=== PATIENT | female | born 1970 | race Caucasian/White ===

== ENCOUNTER 2016-09-14 12:20 | Emergency (ER) | payer OTHER ==
[~2016-09-14 12:20] MED LIST: BUSP10TA PO; GABA600T PO; HYDR-2768 PO; HYOS0.1251 PO; LORA0.5T PO; LOSA50TA PO; LURA20TA PO; OXYC5 PO; PREM1.25 PO; TOPA100T8 PO; TRAZ50TA4 PO
[2016-09-14 12:26] VITALS: BP 141/74; PULSE 87; RESP 20; TEMP 98.2; O2SAT 95
[2016-09-14] MEDS ORDERED: HYOS0.129 PO (12:35)
[2016-09-14] MEDS ORDERED: CYCL1TAB29 PO (12:35)
[2016-09-14] MEDS ORDERED: [UNRECOGNIZED DRUG - CODE] PO (12:35)
[2016-09-14] MEDS ORDERED: EQUE100C PO (12:35)
[2016-09-14] MEDS ORDERED: HYDR25TA5 PO (12:35)
[2016-09-14] MEDS ORDERED: LORA-373 PO (12:35)
[2016-09-14] MEDS ORDERED: ESTR1.25 PO (12:35)
[2016-09-14] MEDS ORDERED: LOSA50TA PO (12:35)
[2016-09-14] MEDS ORDERED: BUSP10TA PO (12:35)
[2016-09-14] MEDS ORDERED: VENL37.5 PO (12:35)
[2016-09-14] MEDS ORDERED: KETOROLAC TROMETHAMINE 30 MG/ML (IVP) VIAL IV PUSH ONE (12:45)
[2016-09-14] MEDS ORDERED: diphenhydrAMINE HCL 50 MG/ML VIAL IV PUSH ONE (12:45)
[2016-09-14] MEDS ORDERED: PROCHLORPERAZINE INJ 10 MG/2 ML VIAL IV PUSH ONE (12:45)
[2016-09-14] MEDS ORDERED: SODIUM CHLORIDE 0.9% FLUSH 10 ML FLUSH IVF PRN (12:45)
[2016-09-14] MEDS ORDERED: SODIUM CHLORID 0.9% 500 ML INJ 500 ML IV ONE (12:45)
--- NOTE | 2016-09-14 12:46 | PD ---
HPI Chief Complaint: Chest Pain Time Seen by Provider: 12:28 Travel History International Travel<30 days: No Contact w/Intl Traveler<30days: No Traveled to known affect area: No History of Present Illness HPI So 46 year-old woman who presents to the emergency department with multiple complaints. She states she woke up not really feeling well today. She started to develop some headache that she describes as frontal over the front of her head is pressure-like. She also started getting some pain in her neck and some chest pain. She also reports a "hard time thinking". She really states she was at her therapist that she had trouble getting her words out and thought clear. She started getting a headache yesterday. She is a history of migraines but states this headache feels different. Typically her migraines are unilateral behind her right eye. She otherwise has been feeling generally well. Review systems positive for some nausea. No recent illness or injury. No other complaints. History Past Medical History Narrative Medical Hypertension hyperlipidemia Chronic pain Bipolar disorder Menopausal: No : 4 Para: 1 Social History Alcohol Use: No Tobacco Use: No Allergies-Medications (Allergen,Severity, Reaction): Coded Allergies: Imitrex (Verified Allergy, Unknown, N/V, 09/14/16) Lisinopril (Verified Allergy, Unknown, ITCHY, SWOLLEN THROAT, 09/14/16) Mobic (Verified Adverse Reaction, Severe, Swelling, 09/14/16) Reported Meds & Prescriptions Reported Meds & Active Scripts Active Reported Effexor (Venlafaxine HCl) 37.5 Mg Tab 37.5 Mg PO DAILY Losartan (Losartan Potassium) 50 Mg Tab 50 Mg PO DAILY Topiramate (Topiramate (Bulk)) 1 Pow Pow 50 Mg PO BID Premarin (Estrogens Conjugated) 1.25 Mg Tab 1.25 Mg PO DAILY Hydrochlorothiazide 25 Mg Tab 25 Mg PO DAILY Equetro ER 12 HR (Carbamazepine ER 12 HR) 100 Mg Cap 100 Mg PO Q12HR Buspirone (Buspirone HCl) 10 Mg Tab 10 Mg PO TID PRN Flexeril (Cyclobenzaprine HCl) 10 Mg Tab 10 Mg PO DAILY Lorazepam 0.5 Mg Tab 0.5 Mg PO BID Hyoscyamine Sulfate 0.125 Mg Tab 1 Tab PO Q4H PRN Review of Systems Except as stated in HPI: all other systems reviewed are Neg Physical Exam Narrative GENERAL: Well-appearing 46 year-old woman, no acute distress. SKIN: Focused skin assessment warm/dry. HEAD: Atraumatic. Normocephalic. EYES: Pupils equal and round. No scleral icterus. No injection or drainage. ENT: No nasal bleeding or discharge. Mucous membranes pink and moist. NECK: Trachea midline. No JVD. CARDIOVASCULAR: Regular rate and rhythm. No murmur appreciated. RESPIRATORY: No accessory muscle use. Clear to auscultation. Breath sounds equal bilaterally. GASTROINTESTINAL: Abdomen soft, non-tender, nondistended. Hepatic and splenic margins not palpable. MUSCULOSKELETAL: No obvious deformities. No clubbing. No cyanosis. No edema. NEUROLOGICAL: Awake and alert. No obvious cranial nerve deficits. Motor grossly within normal limits. Normal speech. PSYCHIATRIC: Appropriate mood and affect; insight and judgment normal. Data Data Last Documented VS Vital Signs Date Time Temp Pulse Resp B/P Pulse Ox O2 Delivery O2 Flow Rate FiO2 09/14/16 13:24 71 18 117/73 95 09/14/16 12:26 98.2 Orders Electrocardiogram (09/14/16 12:38) Complete Blood Count With Diff (09/14/16 12:38) Comprehensive Metabolic Panel (09/14/16 12:38) Troponin I (09/14/16 12:38) Chest, Single Ap (09/14/16 12:38) Ecg Monitoring (09/14/16 12:38) Iv Access Insert/Monitor (09/14/16 12:38) Oximetry (09/14/16 12:38) Oxygen Administration (09/14/16 12:38) Sodium Chloride 0.9% Flush (Ns Flush) (09/14/16 12:45) Sodium Chlorid 0.9% 500 Ml Inj (Ns 500 M (09/14/16 12:45) Prochlorperazine Inj (Compazine Inj) (09/14/16 12:45) Diphenhydramine Inj (Benadryl Inj) (09/14/16 12:45) Ketorolac Inj (Toradol Inj) (09/14/16 12:45) Labs Laboratory Tests Test 09/14/16 12:45 White Blood Count 8.2 TH/MM3 Red Blood Count 4.14 MIL/MM3 Hemoglobin 12.9 GM/DL Hematocrit 38.5 % Mean Corpuscular Volume 93.0 FL Mean Corpuscular Hemoglobin 31.1 PG Mean Corpuscular Hemoglobin 33.5 % Concent Red Cell Distribution Width 13.8 % Platelet Count 257 TH/MM3 Mean Platelet Volume 7.4 FL Neutrophils (%) (Auto) 57.8 % Lymphocytes (%) (Auto) 29.3 % Monocytes (%) (Auto) 8.4 % Eosinophils (%) (Auto) 4.0 % Basophils (%) (Auto) 0.5 % Neutrophils # (Auto) 4.8 TH/MM3 Lymphocytes # (Auto) 2.4 TH/MM3 Monocytes # (Auto) 0.7 TH/MM3 Eosinophils # (Auto) 0.3 TH/MM3 Basophils # (Auto) 0.0 TH/MM3 CBC Comment DIFF FINAL Differential Comment Sodium Level 139 MEQ/L Potassium Level 3.8 MEQ/L Chloride Level 102 MEQ/L Carbon Dioxide Level 27.4 MEQ/L Anion Gap 10 MEQ/L Blood Urea Nitrogen 20 MG/DL Creatinine 0.89 MG/DL Estimat Glomerular Filtration 68 ML/MIN Rate Random Glucose 93 MG/DL Calcium Level 8.5 MG/DL Total Bilirubin 0.3 MG/DL Aspartate Amino Transf 27 U/L (AST/SGOT) Alanine Aminotransferase 51 U/L (ALT/SGPT) Alkaline Phosphatase 108 U/L Troponin I LESS THAN 0.02 NG/ML Total Protein 7.3 GM/DL Albumin 3.7 GM/DL [facility] Medical Decision Making Medical Screen Exam Complete: Yes Emergency Medical Condition: Yes Interpretation(s) My review of EKG: Normal sinus rhythm rate of 77, normal axis, normal intervals , poor R-wave progression, no acute ischemia. LABS: CBC is unremarkable. CMP is unremarkable. Troponin negative. Chest x-ray negative. Differential Diagnosis Migraine, tension headache, stress, somatization, URI, other Narrative Course Medical decision making INITIAL: Well-appearing 38 year-old woman with multiple complaints seem to center around a bad headache, some chest pain, some difficulty keeping her thoughts clear. She is on multiple medications. She is her chronic pain. Symptoms chest pain with this as well. EKG is unremarkable. We'll give her migraine cocktail, check some basic labs, chest x-ray. Likely discharge. Diagnosis Primary Impression: Chest pain Additional Impression: Headache Additional Instructions: Follow-up with your primary doctor in 3-5 days every not feeling completely well. Return to the emergency department for any worsening chest pain, trouble breathing, or any other new or worsening symptoms. Med/Other Pt SpecificInfo: No Change to Meds Disposition: 01 DISCHARGE HOME Condition: Stable Tomi Mills MD Sep 14, 2016 12:46
[2016-09-14 12:53] VITALS: O2SAT 95
[2016-09-14 13:01] LABS: AUTOMATED NEUTROPHIL # 4.8 TH/MM3 (1.8-7.7); BASOPHIL % 0.5 % (0.0-2.0); EOSINOPHIL # 0.3 TH/MM3 (0-0.4); HEMATOCRIT 38.5 % (35.0-46.0); HEMO FLAGS DIFF FINAL; LYMPH % 29.3 % (9.0-44.0); LYMPHOCYTE # 2.4 TH/MM3 (1.0-4.8); MEAN CORPUSCULAR HEMOGLOBIN 31.1 PG (27.0-34.0); MEAN CORPUSCULAR HGB CONC 33.5 % (32.0-36.0); MONO % 8.4 % (0.0-8.0); NEUT % 57.8 % (16.0-70.0); PLATELET COUNT 257 TH/MM3 (150-450); RED BLOOD COUNT 4.14 MIL/MM3 (4.00-5.30); RED CELL DISTRIBUTION WIDTH 13.8 % (11.6-17.2); WHITE BLOOD COUNT 8.2 TH/MM3 (4.0-11.0)
[2016-09-14 13:10] LABS: CHLORIDE 102 MEQ/L (98-107); POTASSIUM 3.8 MEQ/L (3.5-5.1); SODIUM (NA) 139 MEQ/L (136-145)
[2016-09-14 13:14] LABS: ANION GAP 10 MEQ/L (5-15); BICARBONATE 27.4 MEQ/L (21.0-32.0); BLOOD UREA NITROGEN 20 MG/DL (7-18)
[2016-09-14 13:17] LABS: ALT (GPT) 51 U/L (10-53); AST (GOT) 27 U/L (15-37); GLOMERULAR FILTRATION RATE 68 ML/MIN (>89)
[2016-09-14 13:19] LABS: TOTAL BILIRUBIN ADULT 0.3 MG/DL (0.2-1.0)
--- NOTE | 2016-09-14 13:19 | RADHPO ---
EXAM DATE/TIME: 09/14/2016 12:47 [facility] COMPARISON: CHEST SINGLE AP, July 27, 2015, 19:39. INDICATIONS : Chest pain and headache. MEDICAL HISTORY : Hypertension. Arthritis. Ovarian cyst. Fibromyalgia. Mitral valve prolapse. SURGICAL HISTORY : Appendectomy. Tubal ligation. ENCOUNTER: Initial ACUITY: 1 day PAIN SCORE: 8/10 LOCATION: Bilateral chest FINDINGS: A single view of the chest demonstrates the lungs to be symmetrically aerated without evidence of mas s, infiltrate or effusion. The cardiomediastinal contours are unremarkable. Osseous structures are intact. CONCLUSION: No acute cardiopulmonary process. Jose Manuel Neal MD on September 14, 2016 at 13:17 Board Certified Radiologist. This report was verified electronically.
[2016-09-14 13:20] LABS: ALKALINE PHOSPHATASE 108 U/L (45-117)
[2016-09-14 13:24] VITALS: BP 117/73; PULSE 71; RESP 18; O2SAT 95
--- NOTE | 2016-09-15 14:02 | EKG ---
Date Performed: 09/14/2016 Time Performed: 12:20:50 PTAGE: 46 years EKG: Sinus rhythm . Poor R wave progression - probable normal variant Low QRS voltages in precordial leads Borderline E CG Compared to prior tracing no significant change PREVIOUS TRACING : 07/28/2015 01.27 DOCTOR: aSmuel Cabrera Interpretating Date/Time 09/15/2016 13:59:45
== END 2016-09-14 13:44 | disposition home or self-care (01) ==
LOC: PHED 12:20
DX: R07.9 Chest pain, unspecified (principal); R51 Headache; M54.2 Cervicalgia; R11.0 Nausea; R94.31 Abnormal electrocardiogram [ECG] [EKG]; I10 Essential (primary) hypertension; E78.5 Hyperlipidemia, unspecified; G89.29 Other chronic pain; Z86.59 Personal history of other mental and behavioral disorders
CPT/HCPCS: 71010; 80053; 84484; 85025; 93005; 96361; 96374; 96375; 99285; J0780; J1200; J1885; J7040

== ENCOUNTER 2016-11-15 13:08 | Emergency (ER) | payer OTHER ==
[~2016-11-15] VITALS: Ht 162.6 cm; Wt 92.0 kg
[~2016-11-15 13:08] MED LIST changes: +CYCL1TAB29 PO; +EQUE100C PO; +ESTR1.25 PO; -GABA600T PO; -HYDR-2768 PO; +HYDR25TA5 PO; -HYOS0.1251 PO; +HYOS0.129 PO; +LORA-373 PO; -LORA0.5T PO; -LURA20TA PO; -OXYC5 PO; -PREM1.25 PO; -TOPA100T8 PO; -TRAZ50TA4 PO; +VENL37.5 PO; +[UNRECOGNIZED DRUG - CODE] PO
[2016-11-15 13:10] VITALS: BP 132/77; PULSE 94; RESP 18; TEMP 97.7; O2SAT 98
--- NOTE | 2016-11-15 13:15 | PD ---
Physical Exam Date Seen by Provider: Nov 15, 2016 Time Seen by Provider: 13:11 Data Data Last Documented VS Vital Signs Date Time Temp Pulse Resp B/P Pulse Ox O2 Delivery O2 Flow Rate FiO2 11/15/16 13:10 97.7 94 18 132/77 98 MDM Supervised Visit with TG: No Narrative Course 46 YO F with complaint of disturbing thoughts. +SI --HI No active plan. States : I have a lot of medications." Hx bipolar, PTSD, hallucinations. Endorses compliance with medications. Recent change to Carbamazepine 1 month ago[address] Follow[address] by Dr. Faria. Vitals reviewed. Patient seen in triage, awaiting bed placement. April Meyer Nov 15, 2016 13:15
[2016-11-15 15:10] LABS: AUTOMATED NEUTROPHIL # 4.5 TH/MM3 (1.8-7.7); BASOPHIL # 0.1 TH/MM3 (0-0.2); BASOPHIL % 0.7 % (0.0-2.0); EOSINOPHIL # 0.3 TH/MM3 (0-0.4); EOSINOPHIL % 3.8 % (0.0-4.0); HEMATOCRIT 41.6 % (35.0-46.0); HEMO FLAGS DIFF FINAL; LYMPH % 36.5 % (9.0-44.0); LYMPHOCYTE # 3.2 TH/MM3 (1.0-4.8); MEAN CELL VOLUME 93.6 FL (80.0-100.0); MEAN CORPUSCULAR HGB CONC 34.2 % (32.0-36.0); MONO % 6.7 % (0.0-8.0); NEUT % 52.3 % (16.0-70.0); PLATELET COUNT 259 TH/MM3 (150-450); RED BLOOD COUNT 4.44 MIL/MM3 (4.00-5.30); RED CELL DISTRIBUTION WIDTH 14.2 % (11.6-17.2); WHITE BLOOD COUNT 8.6 TH/MM3 (4.0-11.0)
[2016-11-15 15:15] LABS: AMPHETAMINE, URINE NEG (NEG); BARBITURATES, URINE NEG (NEG); COCAINE, URINE NEG (NEG)
[2016-11-15 15:27] LABS: BICARBONATE 29.6 MEQ/L (21.0-32.0); POTASSIUM 3.6 MEQ/L (3.5-5.1)
--- NOTE | 2016-11-15 15:28 | PD ---
HPI Chief Complaint: Psychiatric Symptoms Time Seen by Provider: 15:28 Travel History International Travel<30 days: No Contact w/Intl Traveler<30days: No Traveled to known affect area: No History of Present Illness HPI 46-year-old female with a history of hypertension, depression, anxiety, bipolar disorder, migraines presents to the emergency department for evaluation of suicidal ideations. The patient states that for the last month she has had increasingly more frequent suicidal ideations. States that she has a history of depression and has had recent life stressors with financial difficulties at home which is aggravated her depression. States that her psychiatrist changed her medications about 4 months ago and thinks that this also has worsened her depression. She states that she has had suicidal thoughts in the past and many years ago attempted to kill herself by "walking into the ocean to drown myself. " States that she has not done anything recently an attempt to harm herself. Denies any ingestion of substances in an attempt to harm herself. States that she has had thoughts of killing herself by overdosing on her medication at home or taking one of her husbands guns and shooting herself. States that she became scared to be alone today which is why she came for evaluation. She states she has a mild headache but otherwise denies any complaints. Denies any chest pain, shortness breath, abdominal pain, nausea, vomiting, dizziness. Denies any alcohol or drug use. She is status post hysterectomy. PFSH Past Medical History Arthritis: Yes Autoimmune Disease: No Bipolar Disorder: Yes Anxiety: Yes Depression: Yes Heart Rhythm Problems: Yes (OCCASIONAL FEELING OF PALPITATIONS.) Cancer: No Cardiovascular Problems: Yes (MITRAL VALVE PROLAPSE FOUND AT 10 YEARS OLD) High Cholesterol: Yes Chest Pain: Yes (CHEST PRESSURE WITH SHARP FAST PAIN) Congestive Heart Failure: No Cerebrovascular Accident: No Diabetes: No Diminished Hearing: No Endocrine: No Fibromyalgia: Yes Gastrointestinal Disorders: Yes GERD: No Genitourinary: No Headaches: Yes Hiatal Hernia: No Hypertension: Yes Immune Disorder: No Musculoskeletal: Yes Neurologic: Yes Psychiatric: Yes Reproductive: Yes (OVARIAN CYST AND FIBROIDS) Respiratory: No Migraines: Yes Seizures: No Thyroid Disease: No Ulcer: No Tetanus Vaccination: > 5 Years Influenza Vaccination: No ?: Not Menopausal: No : 4 Para: 1 Miscarriage: 1 : 3 Tubal Ligation: Yes Past Surgical History Abdominal Surgery: Yes (APPENDIX) Appendectomy: Yes Gynecologic Surgery: Yes (TUBAL) Hysterectomy: Yes Oral Surgery: Yes (WISDOM TOOTH REMOVAL, TONSILS) Tonsillectomy: Yes Other Surgery: Yes (NASAL SURGERY) Social History Alcohol Use: Yes Tobacco Use: Yes Substance Use: No Allergies-Medications (Allergen,Severity, Reaction): Coded Allergies: Imitrex (Verified Allergy, Unknown, N/V, 11/15/16) Lisinopril (Verified Allergy, Unknown, ITCHY, SWOLLEN THROAT, 11/15/16) Mobic (Verified Adverse Reaction, Severe, Swelling, 11/15/16) Reported Meds & Prescriptions Reported Meds & Active Scripts Active Reported Hyoscyamine (Hyoscyamine Sulfate) 0.125 Mg Tab 0.125 Mg PO Q4HR Effexor (Venlafaxine HCl) 37.5 Mg Tab 37.5 Mg PO DAILY Losartan (Losartan Potassium) 50 Mg Tab 50 Mg PO DAILY Topiramate (Topiramate (Bulk)) 1 Pow Pow 50 Mg PO BID Premarin (Estrogens Conjugated) 1.25 Mg Tab 1.25 Mg PO DAILY Hydrochlorothiazide 25 Mg Tab 25 Mg PO DAILY Equetro ER 12 HR (Carbamazepine ER 12 HR) 100 Mg Cap 100 Mg PO Q12HR Buspirone (Buspirone HCl) 10 Mg Tab 10 Mg PO TID PRN Flexeril (Cyclobenzaprine HCl) 10 Mg Tab 10 Mg PO DAILY Lorazepam 0.5 Mg Tab 0.5 Mg PO BID Review of Systems Except as stated in HPI: all other systems reviewed are Neg Physical Exam Narrative GENERAL: Well-nourished and well-developed pleasant female patient in no acute distress, tearful and upset. SKIN: Warm and dry. HEAD: Normocephalic and atraumatic. EYES: No injection, drainage, or hyphema noted. PERRLA. EOMI. ENT: No nasal drainage noted. Oropharynx is clear. NECK: Supple and the trachea is midline. CARDIOVASCULAR: Regular rate and rhythm. RESPIRATORY: Breath sounds are equal bilaterally with no accessory muscle use, wheezing, rhonchi, or crackles. GASTROINTESTINAL: Abdomen is soft, non-tender, and nondistended. MUSCULOSKELETAL: No obvious deformities, swelling, cyanosis, or ecchymosis is present throughout the upper and lower extremities. Patient has full range of motion without any signs of neurovascular compromise. NEUROLOGICAL: Awake, alert, and oriented. Normal speech and gait. Cranial nerves are grossly intact. Data Data Last Documented VS Vital Signs Date Time Temp Pulse Resp B/P Pulse Ox O2 Delivery O2 Flow Rate FiO2 11/15/16 13:10 97.7 94 18 132/77 98 Orders Complete Blood Count With Diff (11/15/16 14:31) Basic Metabolic Panel (Bmp) (11/15/16 14:31) Psych Screen (11/15/16 14:31) Drug Screen, Random Urine (11/15/16 14:31) Alcohol (Ethanol) (11/15/16 14:31) Acetaminophen (Tylenol) (11/15/16 15:30) Labs Laboratory Tests Test 11/15/16 14:40 White Blood Count 8.6 TH/MM3 Red Blood Count 4.44 MIL/MM3 Hemoglobin 14.2 GM/DL Hematocrit 41.6 % Mean Corpuscular Volume 93.6 FL Mean Corpuscular Hemoglobin 32.0 PG Mean Corpuscular Hemoglobin 34.2 % Concent Red Cell Distribution Width 14.2 % Platelet Count 259 TH/MM3 Mean Platelet Volume 7.5 FL Neutrophils (%) (Auto) 52.3 % Lymphocytes (%) (Auto) 36.5 % Monocytes (%) (Auto) 6.7 % Eosinophils (%) (Auto) 3.8 % Basophils (%) (Auto) 0.7 % Neutrophils # (Auto) 4.5 TH/MM3 Lymphocytes # (Auto) 3.2 TH/MM3 Monocytes # (Auto) 0.6 TH/MM3 Eosinophils # (Auto) 0.3 TH/MM3 Basophils # (Auto) 0.1 TH/MM3 CBC Comment DIFF FINAL Differential Comment Sodium Level 138 MEQ/L Potassium Level 3.6 MEQ/L Chloride Level 102 MEQ/L Carbon Dioxide Level 29.6 MEQ/L Anion Gap 6 MEQ/L Blood Urea Nitrogen 11 MG/DL Creatinine 0.96 MG/DL Estimat Glomerular Filtration 62 ML/MIN Rate Random Glucose 83 MG/DL Calcium Level 9.3 MG/DL Urine Opiates Screen NEG Urine Barbiturates Screen NEG Urine Amphetamines Screen NEG Urine Benzodiazepines Screen NEG Urine Cocaine Screen NEG Urine Cannabinoids Screen NEG Ethyl Alcohol Level 4 MG/DL MDM Medical Decision Making Medical Screen Exam Complete: Yes Emergency Medical Condition: Yes Differential Diagnosis Differential: Depression versus adjustment reaction versus anxiety versus PTSD versus psychosis NOS versus mood disorder NOS versus substance induced mood disorder versus ODD versus adjustment reaction versus schizophrenia versus bipolar disorder versus schizoaffective versus electrolyte abnormality versus dementia versus malingering. Narrative Course Patient presents voluntarily for psychiatric evaluation. Physical examination and vital signs are essentially unremarkable. Patient complains of a mild headache and is given Tylenol. Psych screen has been ordered. The patient is agreeable to stay under voluntary basis but should she try to leave before psych eval she should be placed under a [place] Act. I did discuss this with her and she understands. The laboratory results are unremarkable. The patient is medically cleared for psychiatric evaluation and disposition. Diagnosis Primary Impression: Depression with suicidal ideation Bell Coppola Nov 15, 2016 15:28
[2016-11-15] MEDS ORDERED: ACETAMINOPHEN 500 MG CPLT PO ONE (15:30)
[2016-11-15] MEDS ORDERED: HYOS0.128 PO (15:41)
[2016-11-15] MEDS ORDERED: GABA600T PO (15:56)
[2016-11-15] MEDS ORDERED: TOPA50TA7 PO (15:56)
[2016-11-15] MEDS ORDERED: LURA40 PO (15:56)
[2016-11-15] MEDS ORDERED: VENL75CA44 PO (15:56)
[2016-11-15] MEDS ORDERED: TRAZ100T6 PO (15:56)
[2016-11-15] MEDS ORDERED: HYDR-3533 PO (15:56)
[2016-11-15 16:24] VITALS: BP 129/68
[2016-11-15 18:21] VITALS: BP 129/68; PULSE 89; RESP 18; O2SAT 97
--- NOTE | 2016-11-15 18:41 | PD ---
History of Present Illness Chief Complaint: Psychiatric Symptoms Time Seen by Provider: 18:00 Travel History International Travel<30 Days: No Contact w/Intl Traveler<30days: No Known affected area: No Legal Status Legal Status: Voluntary History of Present Illness: History of Present Illness HPI 46-year-old female with a history of depression, anxiety, bipolar disorder who presents to the emergency department for evaluation of suicidal ideations. The patient states that for the last month she has had increasingly more frequent suicidal ideations with no attempts.Her psychiatrist changed her medications and added Equetro about 4 months ago. She states that she has had suicidal thoughts in the past and many years ago attempted to kill herself by "walking into the ocean to drown myself." States that she has had thoughts of killing herself by overdosing on her medication at home or taking one of her husbands guns and shooting herself. States that she became scared to be alone today which is why she came for evaluation. Recent life stressors include financial difficulties . Patient is alert and oriented female who appears stated age. She is engaging with fluid speech. No keely. No hallucinations. She appears sad and depressed. Denies suicidal ideation at this time. No homicidal ideation. At his time she is requesting discharge and tells me she has had time to come up with a safety plan. She will be in contact with her therapist and will continue with her medications. She will return home and if any changes in how she feels she agrees to return to ED. The medication changes occurred 4 months ago. The patient has been seen by her outpatient provider who has recommended that she increase the Equetro to 300 mg po q day. She has not increased the medication because she was afraid that she would run out of the samples she had at home. I have advised her to contact her outpatient provider as well as to increase the medication as it has been prescribed. . PFSH Past Medical History Arthritis: Yes Autoimmune Disease: No Bipolar Disorder: Yes Anxiety: Yes Depression: Yes Heart Rhythm Problems: Yes (OCCASIONAL FEELING OF PALPITATIONS.) Cancer: No Cardiovascular Problems: Yes (MITRAL VALVE PROLAPSE FOUND AT 10 YEARS OLD) High Cholesterol: Yes Chest Pain: Yes (CHEST PRESSURE WITH SHARP FAST PAIN) Congestive Heart Failure: No Cerebrovascular Accident: No Diabetes: No Diminished Hearing: No Endocrine: No Fibromyalgia: Yes Gastrointestinal Disorders: Yes GERD: No Genitourinary: No Headaches: Yes Hiatal Hernia: No Hypertension: Yes Immune Disorder: No Musculoskeletal: Yes Neurologic: Yes Psychiatric: Yes Reproductive: Yes (OVARIAN CYST AND FIBROIDS) Respiratory: No Migraines: Yes Seizures: No Thyroid Disease: No Ulcer: No Tetanus Vaccination: > 5 Years Influenza Vaccination: No ?: Not Menopausal: No : 4 Para: 1 Miscarriage: 1 : 3 Tubal Ligation: Yes Past Surgical History Abdominal Surgery: Yes (APPENDIX) Appendectomy: Yes Gynecologic Surgery: Yes (TUBAL) Hysterectomy: Yes Oral Surgery: Yes (WISDOM TOOTH REMOVAL, TONSILS) Tonsillectomy: Yes Other Surgery: Yes (NASAL SURGERY) Psychiatric History Psychiatric History Hx Psychiatric Treatment: Currently sees Dr Faria for psychiatry, Dr Medley for counceling. History of Inpatient Treatment: No Guns or firearms in home: Yes (In 's posession) Social History female . Lives with her . Hx Alcohol Use: Yes Hx Tobacco Use: Yes Hx Substance Use: No (Pt denies) Hx of Substance Use Treatment: No Family Psychiatric History Negative Allergies-Medications (Allergen,Severity, Reaction): Coded Allergies: Imitrex (Verified Allergy, Unknown, N/V, 11/15/16) Lisinopril (Verified Allergy, Unknown, ITCHY, SWOLLEN THROAT, 11/15/16) Mobic (Verified Adverse Reaction, Severe, Swelling, 11/15/16) Reported Meds & Prescriptions Reported Meds & Active Scripts Active Reported Trazodone (Trazodone HCl) 100 Mg Tablet 150 Mg PO HS PRN Gabapentin 600 Mg Tab 600 Mg PO TID Lortab (Hydrocodone-Acetaminophen) 5-325 Mg Tab 1 Tab PO BID Venlafaxine ER 24 HR (Venlafaxine HCl) 75 Mg Cap 75 Mg PO DAILY Topamax (Topiramate) 50 Mg Tab 50 Mg PO BID Hyoscyamine (Hyoscyamine Sulfate) 0.125 Mg Tab 0.125 Mg PO Q4HR PRN Losartan (Losartan Potassium) 50 Mg Tab 50 Mg PO DAILY Premarin (Estrogens Conjugated) 1.25 Mg Tab 1.25 Mg PO DAILY Hydrochlorothiazide 25 Mg Tab 25 Mg PO DAILY Equetro ER 12 HR (Carbamazepine ER 12 HR) 100 Mg Cap 100 Mg PO Q12HR Flexeril (Cyclobenzaprine HCl) 10 Mg Tab 10 Mg PO HS Lorazepam 0.5 Mg Tab 0.5 Mg PO BID PRN Review of Systems Constitutional: COMPLAINS OF: Change in appetite (decreased) Endocrine: DENIES: Abnorml menstrual pattern, Heat/cold intolerance, Polydipsia , Polyuria, Polyphagia Eyes: DENIES: Blurred vision, Diplopia, Eye inflammation, Eye pain, Vision loss , Photosensitivity, Double Vision Ears, nose, mouth, throat: DENIES: Tinnitus, Hearing loss, Vertigo, Nasal discharge, Oral lesions, Throat pain, Hoarseness, Ear Pain, Running Nose, Epistaxis, Sinus Pain, Toothache, Odynophagia Respiratory: DENIES: Apneas, Cough, Snoring, Wheezing, Hemoptysis, Sputum production, Shortness of breath Cardiovascular: DENIES: Chest pain, Palpitations, Syncope, Dyspnea on Exertion , PND, Lower Extremity Edema, Orthopnea, Claudication Genitourinary: DENIES: Abnormal vaginal bleeding, Dysmenorrhea, Dyspareunia, Sexual dysfunction, Urinary frequency, Urinary incontinence, Urgency, Hematuria , Dysuria, Nocturia, Vaginal discharge Hematologic/lymphatic: DENIES: Bruising, Lymphadenopathy Immunologic/allergic: DENIES: Eczema, Urticaria Neurologic: DENIES: Abnormal gait, Headache, Localized weakness, Paresthesias, Seizures, Speech Problems, Tremor, Poor Balance Psychiatric: COMPLAINS OF: Depression Exam Alert: Yes [place]: Person (ox4) Mood: Depressed Affect: Appropriate Speech: Clear, Logical Eye Contact: Normal Memory Intact: Comment (No impairmetn) Hallucinations: Other (negative) Delusions: No Suicidal: Ideation (marge at present) Homicidal: Ideation (denies any) Insight/Judgement Fair. Not impaired. MDM Medical Decision Making Medical Record Reviewed: Yes Assessment/Plan 46 year old female under a voluntary status after she felt afraid of staying home by herself. She is currently in tx with outpatient provider but has been feeling increasingly depressed since changes were made to her medications 4 months ago. At this time the patient denies suicidal ideation. She has formulated a safety plan and contracts to return to ED if she once again feels unsafe. Orders Complete Blood Count With Diff (11/15/16 14:31) Basic Metabolic Panel (Bmp) (11/15/16 14:31) Psych Screen (11/15/16 14:31) Drug Screen, Random Urine (11/15/16 14:31) Alcohol (Ethanol) (11/15/16 14:31) Acetaminophen (Tylenol) (11/15/16 15:30) Results Vital Signs Date Time Temp Pulse Resp B/P Pulse Ox O2 Delivery O2 Flow Rate FiO2 11/15/16 18:21 89 18 129/68 97 Room Air 11/15/16 16:24 89 18 129/68 97 11/15/16 13:10 97.7 94 18 132/77 98 Laboratory Tests Test 11/15/16 14:40 White Blood Count 8.6 Red Blood Count 4.44 Hemoglobin 14.2 Hematocrit 41.6 Mean Corpuscular Volume 93.6 Mean Corpuscular Hemoglobin 32.0 Mean Corpuscular Hemoglobin 34.2 Concent Red Cell Distribution Width 14.2 Platelet Count 259 Mean Platelet Volume 7.5 Neutrophils (%) (Auto) 52.3 Lymphocytes (%) (Auto) 36.5 Monocytes (%) (Auto) 6.7 Eosinophils (%) (Auto) 3.8 Basophils (%) (Auto) 0.7 Neutrophils # (Auto) 4.5 Lymphocytes # (Auto) 3.2 Monocytes # (Auto) 0.6 Eosinophils # (Auto) 0.3 Basophils # (Auto) 0.1 CBC Comment DIFF FINAL Differential Comment Sodium Level 138 Potassium Level 3.6 Chloride Level 102 Carbon Dioxide Level 29.6 Anion Gap 6 Blood Urea Nitrogen 11 Creatinine 0.96 Estimat Glomerular Filtration 62 Rate Random Glucose 83 Calcium Level 9.3 Urine Opiates Screen NEG Urine Barbiturates Screen NEG Urine Amphetamines Screen NEG Urine Benzodiazepines Screen NEG Urine Cocaine Screen NEG Urine Cannabinoids Screen NEG Ethyl Alcohol Level 4 Diagnosis Primary Impression: Adjustment disorder with mixed anxiety and depressed mood Additional Impression: Depression with suicidal ideation Psychiatrically Cleared: Yes Departure Forms: Tests/Procedures Patient Instructions: General Instructions, Mood Disorders (ED), Medical Clearance for Psychiatric Care (ED) Additional Instructions: DX: Adjustment Disorder with Anxiety and Depression Please return to ED if symptoms worsen. Med/ Other Pt Specific Info: No Change to Meds Disposition: 01 DISCHARGE HOME Condition: Stable Problem Qualifiers Lauryn Wong [facility] Nov 15, 2016 18:41
== END 2016-11-15 20:24 | disposition home or self-care (01) ==
LOC: NEPC 13:08 → NEPJ 20:24
DX: F41.8 Other specified anxiety disorders (principal); R45.851 Suicidal ideations; I10 Essential (primary) hypertension; Z72.0 Tobacco use; F10.10 Alcohol abuse, uncomplicated; I34.1 Nonrheumatic mitral (valve) prolapse; F31.9 Bipolar disorder, unspecified
CPT/HCPCS: 80048; 80307; 85025; 99284